=== PATIENT | female | born 1975 | race Caucasian/White ===

== ENCOUNTER 2019-05-21 00:13 | Emergency (ER) | payer MEDICAID, OTHER ==
[~2019-05-21] VITALS: Ht 162.6 cm; Wt 75.0 kg
[~2019-05-21 00:13] MED LIST: ALBU6.7H9 INH; ONDA8TAB9 PO
[2019-05-21 00:18] VITALS: BP 137/79
[2019-05-21] MEDS: ketorolac trometh inj. 60 MG/2 ML VIAL IM ONE (00:47)
== END 2019-05-21 00:58 | disposition home or self-care (01) ==
LOC: ER 00:14
DX: J01.00 Acute maxillary sinusitis, unspecified (principal); F17.200 Nicotine dependence, unspecified, uncomplicated; Z56.0 Unemployment, unspecified
CPT/HCPCS: 96372; 99284; J1885

== ENCOUNTER 2020-01-07 13:10 | Inpatient (IN) | payer OTHER ==
[~2020-01-07] VITALS: Ht 162.6 cm; Wt 75.0 kg
[2020-01-07] MEDS ORDERED: normal saline 1000ML IV soln IVB ONE (13:35)
[2020-01-07 13:54] LABS: BASOPHILS # (AUTO) 0.1 X10'3 (0-0.2); BASOPHILS % (AUTO) 0.6 % (0-1); EOSINOPHILS % (AUTO) 0.2 % (0-6); HEMATOCRIT 40.8 % (35.0-45.0); LYMPHOCYTES # (AUTO) 1.2 X10'3 (1.1-4.8); LYMPHOCYTES % (AUTO) 12.4 % (21-51); MEAN CORPUSCULAR HGB CONC 34.4 g/dL (33.0-36.5); MEAN CORPUSCULAR VOLUME 90.1 FL (78-98); MEAN PLATELET VOLUME 8.7 FL (7.4-10.4); MONOCYTES # (AUTO) 0.3 X10'3 (0-0.9); MONOCYTES % (AUTO) 3.6 % (2-12); NEUTROPHILS # (AUTO) 8.1 X10'3 (1.8-7.7); NEUTROPHILS % (AUTO) 83.2 % (42-75); PLATELET COUNT 283 X10'3 (140-440); RED BLOOD COUNT 4.54 X10'6 (4.20-5.60); RED CELL DISTRIBUTION WIDTH 13.5 % (11.5-14.5); WHITE BLOOD COUNT 9.7 X10'3 (4.5-11.0)
[2020-01-07 14:03] LABS: URINE AMPHETAMINE SCREEN NEGATIVE (Neg); URINE BARBITUATE SCREEN NEGATIVE (Neg); URINE BENZODIAZEPINES SCREEN NEGATIVE (Neg); URINE CANNABINOID SCREEN NEGATIVE (Neg); URINE COCAINE SCREEN NEGATIVE (Neg); URINE METHADONE SCREEN NEGATIVE (Neg); URINE OPIATE SCREEN NEGATIVE (Neg); URINE PHENCYCLIDINE SCREEN NEGATIVE (Neg)
[2020-01-07 14:06] LABS: CLARITY,URINE CLEAR (Clear); GLUCOSE, URINE NEGATIVE (Neg); KETONES,URINE NEGATIVE (Neg); LEUKOCYTE ESTERASE ,URINE NEGATIVE (Neg); NITRITES, URINE NEGATIVE (Neg); OCCULT BLOOD,URINE TRACE-INTACT (Neg); PH,URINE 6.5 (4.8-8.0); PROTEIN,URINE NEGATIVE (Neg); UROBILINOGEN,URINE 0.2 E.U/dL (0.2-1.0)
[2020-01-07 14:07] LABS: COLOR,URINE COLORLESS (Yellow); UA COLLECTION TYPE NON-SPECIFIED
[2020-01-07 14:14] LABS: ALANINE AMINOTRANSFERASE 18 U/L (12-78); ALBUMIN/GLOBULIN RATIO 1.2 (1.1-1.5); ALKALINE PHOSPHATASE 68 IU/L (46-116); ANION GAP 10 (8-16); ASPARTATE AMINO TRANSFERASE 17 U/L (10-37); BILIRUBIN,TOTAL 0.3 MG/DL (0.1-1.0); BLOOD UREA NITROGEN 11 MG/DL (7-18); BUN/CREATININE RATIO 12.5 (6.6-38.0); CALCIUM 8.7 MG/DL (8.5-10.1); CHLORIDE 106 MMOL/L (99-107); CREATININE 0.88 MG/DL (0.40-0.90); GLUCOSE 93 MG/DL (70-104); SODIUM 141 MMOL/L (135-145); TOTAL CARBON DIOXIDE 25.1 MMOL/L (24-32); TOTAL PROTEIN 7.4 G/DL (6.4-8.2); eGFR 70 ML/MIN
[2020-01-07 14:14] LABS: BACTERIA,URINE NONE SEEN /HPF (Neg); MUCUS STRANDS NONE SEEN /LPF (Neg); RBC,URINE 0-2 /HPF (0-2); SQUAMOUS EPITHELIAL CELL,UR FEW /LPF (FEW); WBC,URINE NONE SEEN /HPF (0-4)
[2020-01-07] MEDS ORDERED: aspirin 81mg tab.chew PO ONE (14:30)
[2020-01-07 15:06] LABS: URINE HCG NEGATIVE (NEG)
[2020-01-07] MEDS ORDERED: iohexol 350MG/ML 100ml bottle IV ONE (15:53)
[2020-01-07] MEDS ORDERED: NO HOME MEDS (16:46)
[2020-01-07] MEDS ORDERED: ondansetron/PF 4mg/2ml inj IV PRN (16:50)
[2020-01-07] MEDS ORDERED: acetaminophen 325mg tablet PO PRN (16:50)
[2020-01-07] MEDS ORDERED: mag hydrox/Alum hydrox/simeth 30ml oral suspension PO PRN (16:50)
[2020-01-07] MEDS ORDERED: magnesium hydroxide 30ml (MOM) UD suspension PO PRN (16:50)
[2020-01-07 17:26] LABS: CHOL/HDL RATIO 2.7 (0.00-4.99); CHOLESTEROL 189 MG/DL (0-200); HDL CHOLESTEROL 70 MG/DL (35-60); LDL CHOLESTEROL 109 MG/DL (50-100); TRIGLYCERIDES 42 MG/DL (20-135)
[2020-01-07] MEDS: normal saline 1000ml 1,000 ML IV SCH (18:50)
[2020-01-07 20:10] VITALS: BP 115/43
[2020-01-07] MEDS: heparin, porcine 5000 units/ml vial SQ SCH (20:37)
[2020-01-07 22:00] VITALS: BP 92/37
[2020-01-07 22:57] VITALS: BP 124/67
[2020-01-08 02:00] VITALS: BP 101/50
[2020-01-08] MEDS: normal saline 1000ml 1,000 ML IV SCH (04:58)
--- NOTE | 2020-01-08 06:39 | NUR ---
Problems reprioritized. Patient report given, questions answered & plan of care reviewed with LEE FERNANDES.
[2020-01-08 07:00] VITALS: BP 105/54
[2020-01-08] MEDS ORDERED: atorvastatin 20mg tablet PO SCH (08:00)
[2020-01-08] MEDS ORDERED: aspirin 81mg tablet.DR PO SCH (08:00)
[2020-01-08] MEDS: heparin, porcine 5000 units/ml vial SQ SCH (08:17)
--- NOTE | 2020-01-08 08:22 | NUR ---
PATIENT STATED SHE ISN'T GOING TO STAY, IF SHE GOING TO LAY IN BED, WHEN SHE CAN DO THAT AT HOME.
--- NOTE | 2020-01-08 09:00 | NUR ---
PAGER ID: [phone] MESSAGE: [phone] Zoraida Flores Patient is now more anxious to get her ECHO done and leave. I paged echo, but she states she has to go to take care of children. Sharon [id number]
[2020-01-08 10:00] VITALS: BP 119/62
--- NOTE | 2020-01-08 10:20 | NUR ---
Second page to ECHO to have bubble study done.
[2020-01-08] MEDS ORDERED: ASPI81TA30 PO (11:00)
[2020-01-08] MEDS ORDERED: ATOR20TA PO (11:00)
--- NOTE | 2020-01-08 11:53 | NUR ---
states she is "dizzy" but wants to go home, so her can work since she is the house . Addendum: 01/08/20 at 1157 by Sharon Barker RN Amended: Links added.
== END 2020-01-08 12:30 | disposition home or self-care (01) | DRG 69 ==
LOC: ER 13:10 → ED HOLD 16:57 → ORTHO 4S 19:50
PROVIDERS: ADMIT Family Medicine; ATTEND Family Medicine
PROC: B3251ZZ Computerized Tomography (CT Scan) of Bilateral Common Carotid Arteries using Low Osmolar Contrast (ICD-10-PCS; principal; 2020-01-07)
PROC: B32G1ZZ Computerized Tomography (CT Scan) of Bilateral Vertebral Arteries using Low Osmolar Contrast (ICD-10-PCS; 2020-01-07)
PROC: B3281ZZ Computerized Tomography (CT Scan) of Bilateral Internal Carotid Arteries using Low Osmolar Contrast (ICD-10-PCS; 2020-01-07)
DX: G45.9 Transient cerebral ischemic attack, unspecified (principal); F17.210 Nicotine dependence, cigarettes, uncomplicated; Z79.899 Other long term (current) drug therapy; Z71.6 Tobacco abuse counseling
CPT/HCPCS: 36415; 70450; 70496; 70498; 70544; 70551; 71045; 80053; 80061; 80305; 81001; 81025; 85025; 87081; 92508; 92616; 93005; 93306; 96360; 97161; 99285; G0378; J1644; J7030; Q9967

== ENCOUNTER 2020-01-23 18:24 | Emergency (ER) | payer OTHER ==
[~2020-01-23] VITALS: Ht 162.6 cm; Wt 77.0 kg
[~2020-01-23 18:24] MED LIST changes: -ALBU6.7H9 INH; +ASPI81TA30 PO; +ATOR20TA PO; -ONDA8TAB9 PO
[2020-01-23] MEDS ORDERED: MECL-159 PO (19:21)
[2020-01-23 19:24] VITALS: BP 105/64
== END 2020-01-23 19:30 | disposition home or self-care (01) ==
LOC: ER 18:24
DX: R42 Dizziness and giddiness (principal); H53.8 Other visual disturbances; Z72.89 Other problems related to lifestyle; Z56.0 Unemployment, unspecified; Z79.82 Long term (current) use of aspirin; Z79.899 Other long term (current) drug therapy
CPT/HCPCS: 93005; 99283

== ENCOUNTER 2020-02-27 11:20 | Emergency (ER) | payer OTHER ==
[~2020-02-27] VITALS: Ht 162.6 cm; Wt 71.6 kg
[~2020-02-27 11:20] MED LIST changes: -ASPI81TA30 PO; +MECL-159 PO
[2020-02-27 11:33] VITALS: BP 104/64
[2020-02-27] MEDS ORDERED: ketorolac trometh. 30mg/ml inj. IV ONE (13:25)
[2020-02-27] MEDS ORDERED: ringers solution, lacted 1,000 ML IV ONE (13:25)
[2020-02-27 13:51] LABS: BASOPHILS # (AUTO) 0.1 X10'3 (0-0.2); BASOPHILS % (AUTO) 0.5 % (0-1); EOSINOPHILS % (AUTO) 0.1 % (0-6); HEMATOCRIT 42.4 % (35.0-45.0); HEMOGLOBIN 14.2 g/dl (12.0-16.0); LYMPHOCYTES # (AUTO) 1.3 X10'3 (1.1-4.8); LYMPHOCYTES % (AUTO) 11.6 % (21-51); MEAN CORPUSCULAR HEMOGLOBIN 30.6 PG (27.0-31.0); MEAN CORPUSCULAR HGB CONC 33.6 g/dL (33.0-36.5); MONOCYTES # (AUTO) 0.3 X10'3 (0-0.9); MONOCYTES % (AUTO) 2.6 % (2-12); NEUTROPHILS # (AUTO) 9.8 X10'3 (1.8-7.7); NEUTROPHILS % (AUTO) 85.2 % (42-75); PLATELET COUNT 327 X10'3 (140-440); RED BLOOD COUNT 4.66 X10'6 (4.20-5.60); RED CELL DISTRIBUTION WIDTH 13.1 % (11.5-14.5); WHITE BLOOD COUNT 11.5 X10'3 (4.5-11.0)
[2020-02-27 14:03] LABS: ALANINE AMINOTRANSFERASE 19 U/L (12-78); ALBUMIN 4.3 G/DL (3.4-5.0); ALBUMIN/GLOBULIN RATIO 1.2 (1.1-1.5); ALKALINE PHOSPHATASE 80 IU/L (46-116); ANION GAP 6 (8-16); ASPARTATE AMINO TRANSFERASE 14 U/L (10-37); BILIRUBIN,TOTAL 0.4 MG/DL (0.1-1.0); BLOOD UREA NITROGEN 11 MG/DL (7-18); BUN/CREATININE RATIO 13.4 (6.6-38.0); CALCIUM 8.8 MG/DL (8.5-10.1); CHLORIDE 105 MMOL/L (99-107); CREATININE 0.82 MG/DL (0.40-0.90); GLUCOSE 100 MG/DL (70-104); POTASSIUM 3.9 MMOL/L (3.5-5.1); SODIUM 140 MMOL/L (135-145); TOTAL CARBON DIOXIDE 28.9 MMOL/L (24-32); TOTAL PROTEIN 7.9 G/DL (6.4-8.2); eGFR 75 ML/MIN
[2020-02-27 14:13] LABS: CREATINE KINASE 71 U/L (26-192)
--- NOTE | 2020-02-27 16:38 | NUR ---
I was going to bring patient back to bed 9, but patient stated that she did not want to go back to a room and just wanted to get the lab results. I asked patient to wait in bed 18 at which time I would have Dr. Hill come to speak with patient. Notified Dr. Hill regarding patient not wanting IV fluids and toradol and just wanting to go home stating that he was on his way. Dr. Hill went to speak with patient. Patient still wanted to leave per Dr. Hill.
[2020-02-28] MEDS ORDERED: DIPH25TA62 PO (02:48)
== END 2020-02-27 16:43 | disposition home or self-care (01) ==
LOC: ER 11:21
DX: S10.0XXA Contusion of throat, initial encounter (principal); E05.90 Thyrotoxicosis, unspecified without thyrotoxic crisis or storm; Z56.0 Unemployment, unspecified; Z72.89 Other problems related to lifestyle; Z79.899 Other long term (current) drug therapy; X58.XXXA Exposure to other specified factors, initial encounter; Y93.89 Activity, other specified; Y92.89 Other specified places as the place of occurrence of the external cause; Y99.8 Other external cause status
CPT/HCPCS: 36415; 80053; 82550; 84443; 85025; 93005; 99284

== ENCOUNTER 2020-02-28 02:22 | Emergency (ER) | payer OTHER ==
[~2020-02-28] VITALS: Ht 167.6 cm; Wt 75.0 kg
[2020-02-28] MEDS ORDERED: LIDOCAINE 5% OINTMENT 35GM TP ONE (02:45)
[2020-02-28] MEDS ORDERED: dexamethasone 4mg tablet PO ONE (02:45)
[2020-02-28] MEDS ORDERED: triamcinolone acetonide 40mg/ml inj IM ONE (02:45)
[2020-02-28] MEDS ORDERED: DIPH25TA62 PO (02:48)
[2020-02-28] MEDS ORDERED: triamcinolone acetonide 40mg/ml inj ONE ×2 (03:07→03:10)
[2020-02-28 03:21] VITALS: BP 127/76
== END 2020-02-28 03:22 | disposition home or self-care (01) ==
LOC: ER 02:23
DX: L25.9 Unspecified contact dermatitis, unspecified cause (principal); Z72.89 Other problems related to lifestyle; Z56.0 Unemployment, unspecified; Z79.899 Other long term (current) drug therapy
CPT/HCPCS: 96372; 99283; J3301

== ENCOUNTER 2020-03-05 13:25 | Inpatient (IN) | payer OTHER ==
[~2020-03-05] VITALS: Ht 162.6 cm; Wt 76.6 kg
[~2020-03-05 13:25] MED LIST changes: +DIPH25TA62 PO
--- NOTE | 2020-03-05 14:45 | NUR ---
LEE BUENO AT BEDSIDE TO INITIATE TELE NEURO CONSULTATION.
[2020-03-05 14:47] LABS: BASOPHILS # (AUTO) 0.1 X10'3 (0-0.2); EOSINOPHILS % (AUTO) 0.1 % (0-6); HEMOGLOBIN 14.4 g/dl (12.0-16.0); LYMPHOCYTES # (AUTO) 1.1 X10'3 (1.1-4.8); MEAN CORPUSCULAR HEMOGLOBIN 30.7 PG (27.0-31.0); MEAN CORPUSCULAR HGB CONC 34.1 g/dL (33.0-36.5); MEAN CORPUSCULAR VOLUME 89.8 FL (78-98); MEAN PLATELET VOLUME 8.8 FL (7.4-10.4); MONOCYTES # (AUTO) 0.3 X10'3 (0-0.9); MONOCYTES % (AUTO) 2.7 % (2-12); NEUTROPHILS # (AUTO) 10.3 X10'3 (1.8-7.7); NEUTROPHILS % (AUTO) 87.2 % (42-75); PLATELET COUNT 322 X10'3 (140-440); RED BLOOD COUNT 4.68 X10'6 (4.20-5.60); RED CELL DISTRIBUTION WIDTH 13.1 % (11.5-14.5); WHITE BLOOD COUNT 11.8 X10'3 (4.5-11.0)
[2020-03-05 15:12] LABS: ALANINE AMINOTRANSFERASE 24 U/L (12-78); ALBUMIN 4.2 G/DL (3.4-5.0); ALBUMIN/GLOBULIN RATIO 1.1 (1.1-1.5); ALKALINE PHOSPHATASE 73 IU/L (46-116); ANION GAP 5 (8-16); ASPARTATE AMINO TRANSFERASE 14 U/L (10-37); BILIRUBIN,TOTAL 0.4 MG/DL (0.1-1.0); BLOOD UREA NITROGEN 9 MG/DL (7-18); BUN/CREATININE RATIO 11.1 (6.6-38.0); CALCIUM 8.8 MG/DL (8.5-10.1); CHLORIDE 103 MMOL/L (99-107); CREATININE 0.81 MG/DL (0.40-0.90); GLUCOSE 97 MG/DL (70-104); POTASSIUM 3.6 MMOL/L (3.5-5.1); SODIUM 135 MMOL/L (135-145); TOTAL CARBON DIOXIDE 26.8 MMOL/L (24-32); TOTAL PROTEIN 7.9 G/DL (6.4-8.2); eGFR 76 ML/MIN
[2020-03-05 15:15] LABS: TROPONIN I < 0.04 NG/ML (0.0-0.05)
[2020-03-05] MEDS ORDERED: NO HOME MEDS (15:38)
[2020-03-05 15:40] LABS: PARTIAL THROMBOPLASTIN TIME 26 SECONDS (22-32)
[2020-03-05] MEDS ORDERED: magnesium hydroxide 30ml (MOM) UD suspension PO PRN (16:20)
[2020-03-05] MEDS ORDERED: acetaminophen 325mg tablet PO PRN ×2 (16:20)
[2020-03-05] MEDS ORDERED: morphine 2 MG/ML inj. syringe IV PRN ×2 (16:20)
[2020-03-05] MEDS ORDERED: mag hydrox/Alum hydrox/simeth 30ml oral suspension PO PRN (16:20)
[2020-03-05] MEDS ORDERED: ondansetron/PF 4mg/2ml inj IV PRN (16:20)
[2020-03-05] MEDS ORDERED: HYDROcodone/acetaminophen 5mg/325mg tablet PO PRN (16:20)
[2020-03-05] MEDS: dextrose 5%-1/2 normal saline 1,000 ML IV SCH (16:46)
[2020-03-05 17:10] LABS: CREATINE KINASE 47 U/L (26-192)
--- NOTE | 2020-03-05 17:43 | NUR ---
PATIENT REFUSING TO WEAR HOSPITAL GOWN AT THIS TIME, PRIMARY RN AWARE.
[2020-03-05 20:54] LABS: CLARITY,URINE CLEAR (Clear); COLOR,URINE YELLOW (Yellow); GLUCOSE, URINE NEGATIVE (Neg); KETONES,URINE 40 mg/dl (Neg); LEUKOCYTE ESTERASE ,URINE NEGATIVE (Neg); NITRITES, URINE NEGATIVE (Neg); OCCULT BLOOD,URINE MODERATE (Neg); PROTEIN,URINE NEGATIVE (Neg); UROBILINOGEN,URINE 0.2 E.U/dL (0.2-1.0)
[2020-03-05 20:58] LABS: UA COLLECTION TYPE CLN CATCH MIDSTREAM
[2020-03-05 21:04] LABS: BACTERIA,URINE FEW /HPF (Neg); MUCUS STRANDS MODERATE /LPF (Neg); RBC,URINE 0-2 /HPF (0-2); SQUAMOUS EPITHELIAL CELL,UR MODERATE /LPF (FEW); WBC,URINE 0-4 /HPF (0-4)
[2020-03-05 21:05] LABS: URINE AMPHETAMINE SCREEN NEGATIVE (Neg); URINE BARBITUATE SCREEN NEGATIVE (Neg); URINE BENZODIAZEPINES SCREEN NEGATIVE (Neg); URINE CANNABINOID SCREEN NEGATIVE (Neg); URINE COCAINE SCREEN NEGATIVE (Neg); URINE METHADONE SCREEN NEGATIVE (Neg); URINE OPIATE SCREEN NEGATIVE (Neg); URINE PHENCYCLIDINE SCREEN NEGATIVE (Neg)
[2020-03-06] MEDS: dextrose 5%-1/2 normal saline 1,000 ML IV SCH (02:22)
[2020-03-06 06:06] LABS: BASOPHILS # (AUTO) 0.1 X10'3 (0-0.2); BASOPHILS % (AUTO) 0.8 % (0-1); EOSINOPHILS % (AUTO) 0.3 % (0-6); HEMATOCRIT 39.5 % (35.0-45.0); HEMOGLOBIN 13.9 g/dl (12.0-16.0); LYMPHOCYTES # (AUTO) 2.3 X10'3 (1.1-4.8); LYMPHOCYTES % (AUTO) 23.1 % (21-51); MEAN CORPUSCULAR HEMOGLOBIN 31.6 PG (27.0-31.0); MEAN CORPUSCULAR HGB CONC 35.1 g/dL (33.0-36.5); MONOCYTES # (AUTO) 0.6 X10'3 (0-0.9); MONOCYTES % (AUTO) 5.6 % (2-12); NEUTROPHILS # (AUTO) 7.1 X10'3 (1.8-7.7); NEUTROPHILS % (AUTO) 70.2 % (42-75); PLATELET COUNT 279 X10'3 (140-440); RED BLOOD COUNT 4.38 X10'6 (4.20-5.60); RED CELL DISTRIBUTION WIDTH 13.3 % (11.5-14.5); WHITE BLOOD COUNT 10.1 X10'3 (4.5-11.0)
[2020-03-06 06:40] LABS: ALANINE AMINOTRANSFERASE 22 U/L (12-78); ALBUMIN 3.5 G/DL (3.4-5.0); ALBUMIN/GLOBULIN RATIO 1.1 (1.1-1.5); ALKALINE PHOSPHATASE 66 IU/L (46-116); ANION GAP 11 (8-16); ASPARTATE AMINO TRANSFERASE 11 U/L (10-37); BILIRUBIN,TOTAL 0.4 MG/DL (0.1-1.0); BLOOD UREA NITROGEN 10 MG/DL (7-18); BUN/CREATININE RATIO 14.7 (6.6-38.0); CALCIUM 8.5 MG/DL (8.5-10.1); CHLORIDE 104 MMOL/L (99-107); CREATININE 0.68 MG/DL (0.40-0.90); GLUCOSE 107 MG/DL (70-104); POTASSIUM 3.7 MMOL/L (3.5-5.1); SODIUM 141 MMOL/L (135-145); TOTAL CARBON DIOXIDE 26.5 MMOL/L (24-32); TOTAL PROTEIN 6.8 G/DL (6.4-8.2); eGFR > 90 ML/MIN
--- NOTE | 2020-03-06 07:16 | NUR ---
RECEIVED PATIENT FROM ER, STILL REFUSING GOWN AFTER EXPLAINING WE NEED TO IDENTIFY HER A PATIENT.
[2020-03-06 10:00] VITALS: BP 114/60
--- NOTE | 2020-03-06 11:05 | NUR ---
patient back from MRI, EEG in room
--- NOTE | 2020-03-06 13:39 | NUR ---
Doctor to see patient educated, gave test results. Patient came out and started walking out of the hospital, doctor aware patient is leaving AMA and patient refused to sign form.
== END 2020-03-06 13:39 | disposition home or self-care (01) | DRG 312 ==
LOC: ER 13:25 → ED HOLD 16:18 → ORTHO 4S 03-06 07:10
PROVIDERS: ADMIT Internal Medicine; ATTEND Internal Medicine
PROC: 4A10X4Z Monitoring of Central Nervous Electrical Activity, External Approach (ICD-10-PCS; principal; 2020-03-06)
DX: R55 Syncope and collapse (principal); F45.20 Hypochondriacal disorder, unspecified; F17.210 Nicotine dependence, cigarettes, uncomplicated; E07.9 Disorder of thyroid, unspecified; R00.2 Palpitations; Z79.899 Other long term (current) drug therapy
CPT/HCPCS: 36415; 70450; 70551; 71045; 80053; 80305; 81001; 82550; 82948; 84443; 84484; 85025; 85610; 85651; 85730; 87081; 93005; 95816; 99285; G0378

== ENCOUNTER 2020-04-24 02:40 | Emergency (ER) | payer OTHER ==
[~2020-04-24] VITALS: Ht 162.6 cm; Wt 77.3 kg
[~2020-04-24 02:40] MED LIST changes: -ATOR20TA PO; -DIPH25TA62 PO; -MECL-159 PO; +NO HOME MEDS
[2020-04-24] MEDS ORDERED: ketorolac trometh inj. 60 MG/2 ML VIAL IM ONE (04:10)
--- NOTE | 2020-04-24 04:30 | NUR ---
PT UP IN CHAIR, IN NO APPARENT DISTRESS ON PHONE
[2020-04-24 04:39] VITALS: BP 117/63
== END 2020-04-24 04:42 | disposition left against medical advice (07) ==
LOC: ER 02:40
DX: M25.511 Pain in right shoulder (principal); F17.200 Nicotine dependence, unspecified, uncomplicated; Z56.0 Unemployment, unspecified; Z79.899 Other long term (current) drug therapy
CPT/HCPCS: 73030; 96372; 99283; J1885

== ENCOUNTER 2020-04-24 04:59 | Emergency (ER) | payer OTHER ==
[~2020-04-24] VITALS: Ht 165.1 cm; Wt 77.3 kg
[2020-04-24 05:05] VITALS: BP 144/78
--- NOTE | 2020-04-24 05:07 | NUR ---
PT STATES SHE WANTS TO WAIT IN THE WAITING ROOM UNTIL ULTRASOUND IS HERE FOR HER
== END 2020-04-24 08:52 | disposition home or self-care (01) ==
LOC: ER 05:00
DX: M25.511 Pain in right shoulder (principal); M54.2 Cervicalgia; I63.9 Cerebral infarction, unspecified; Z79.899 Other long term (current) drug therapy
CPT/HCPCS: 93971; 99284

== ENCOUNTER 2020-08-02 04:09 | Emergency (ER) | payer OTHER ==
[~2020-08-02] VITALS: Ht 162.6 cm; Wt 80.0 kg
[2020-08-02 04:17] VITALS: BP 114/76
== END 2020-08-02 05:23 | disposition home or self-care (01) ==
LOC: ER 04:09
DX: M79.674 Pain in right toe(s) (principal); Z86.73 Personal history of transient ischemic attack (TIA), and cerebral infarction without residual deficits; Z72.89 Other problems related to lifestyle; Z56.0 Unemployment, unspecified
CPT/HCPCS: 73630; 99284

== ENCOUNTER 2020-12-30 08:45 | Emergency (ER) | payer BC, OTHER ==
[~2020-12-30] VITALS: Ht 162.6 cm; Wt 85.2 kg
[2020-12-30] MEDS ORDERED: normal saline 1000ml 1,000 ML IV ONE (09:05)
[2020-12-30] MEDS ORDERED: aspirin 81mg tab.chew PO ONE (09:05)
[2020-12-30] MEDS ORDERED: ketorolac trometh. 30mg/ml inj. IV ONE (09:05)
[2020-12-30 09:17] LABS: BASOPHILS # (AUTO) 0.1 X10'3 (0-0.2); BASOPHILS % (AUTO) 1.3 % (0-1); EOSINOPHILS % (AUTO) 0.6 % (0-6); HEMATOCRIT 42.7 % (35.0-45.0); HEMOGLOBIN 14.7 g/dl (12.0-16.0); LYMPHOCYTES # (AUTO) 1.6 X10'3 (1.1-4.8); LYMPHOCYTES % (AUTO) 18.3 % (21-51); MEAN CORPUSCULAR HEMOGLOBIN 30.8 PG (27.0-31.0); MEAN CORPUSCULAR HGB CONC 34.3 g/dL (33.0-36.5); MEAN CORPUSCULAR VOLUME 89.7 FL (78-98); MONOCYTES # (AUTO) 0.5 X10'3 (0-0.9); MONOCYTES % (AUTO) 5.5 % (2-12); NEUTROPHILS # (AUTO) 6.6 X10'3 (1.8-7.7); NEUTROPHILS % (AUTO) 74.3 % (42-75); PLATELET COUNT 287 X10'3 (140-440); RED BLOOD COUNT 4.77 X10'6 (4.20-5.60); RED CELL DISTRIBUTION WIDTH 13.3 % (11.5-14.5); WHITE BLOOD COUNT 8.9 X10'3 (4.5-11.0)
[2020-12-30 09:34] LABS: ALANINE AMINOTRANSFERASE 18 U/L (12-78); ALBUMIN/GLOBULIN RATIO 1.1 (1.1-1.5); ALKALINE PHOSPHATASE 86 IU/L (46-116); ANION GAP 10 (8-16); ASPARTATE AMINO TRANSFERASE 14 U/L (10-37); BILIRUBIN,TOTAL 0.3 MG/DL (0.1-1.0); BLOOD UREA NITROGEN 15 MG/DL (7-18); BUN/CREATININE RATIO 17.4 (6.6-38.0); CALCIUM 8.3 MG/DL (8.5-10.1); CHLORIDE 106 MMOL/L (99-107); CREATININE 0.86 MG/DL (0.40-0.90); GLUCOSE 90 MG/DL (70-104); POTASSIUM 3.4 MMOL/L (3.5-5.1); SODIUM 141 MMOL/L (135-145); TOTAL CARBON DIOXIDE 24.9 MMOL/L (24-32); TOTAL PROTEIN 7.7 G/DL (6.4-8.2); eGFR 71 ML/MIN
[2020-12-30 09:38] LABS: URINE HCG NEGATIVE (NEG)
[2020-12-30 09:45] LABS: CLARITY,URINE CLOUDY (Clear); COLOR,URINE YELLOW (Yellow); GLUCOSE, URINE NEGATIVE (Neg); KETONES,URINE NEGATIVE (Neg); LEUKOCYTE ESTERASE ,URINE TRACE (Neg); NITRITES, URINE NEGATIVE (Neg); OCCULT BLOOD,URINE SMALL (Neg); PROTEIN,URINE NEGATIVE (Neg); UROBILINOGEN,URINE 0.2 E.U/dL (0.2-1.0)
[2020-12-30 09:58] LABS: BACTERIA,URINE 3+ /HPF (Neg); RBC,URINE 0-2 /HPF (0-2); SQUAMOUS EPITHELIAL CELL,UR MANY /LPF (FEW); UA COLLECTION TYPE CLN CATCH MIDSTREAM; WBC,URINE 0-4 /HPF (0-4)
[2020-12-30 10:38] VITALS: BP 131/76
[2020-12-30] MEDS ORDERED: acetaminophen 325mg tablet PO ONE (10:45)
--- NOTE | 2020-12-30 11:32 | NUR ---
RN INTERVINES PT WAS PULLING OUT IV. PT ADAMENT ABOUT LEAVING FACILITY. PT STATES THAT THE HOSPITAL HAS ALL THINFORMATIN IT NEEDS AND THAT SHE CANT WAIT AROUND ANYMORE BECAUSE SHE IS EXPERIENCING MORE PAIN JUST BEING HERE AT THE FACILITY. RN NOTIFIES MD THAT PT IS LEAVING. RN DISCONTINUES IV LINE AND PT GETS DRESSED.
== END 2020-12-30 11:43 | disposition left against medical advice (07) ==
LOC: ER 08:47
DX: M79.601 Pain in right arm (principal); R11.0 Nausea; Z86.69 Personal history of other diseases of the nervous system and sense organs; Z72.89 Other problems related to lifestyle; Z56.0 Unemployment, unspecified
CPT/HCPCS: 36415; 71045; 80053; 81001; 81025; 84484; 85025; 93005; 93971; 96361; 96374; 99285; J1885; J7030

== ENCOUNTER 2021-01-01 10:43 | Emergency (ER) | payer BC ==
[~2021-01-01] VITALS: Ht 162.6 cm; Wt 81.8 kg
[2021-01-01 10:47] VITALS: BP 116/71
[2021-01-01] MEDS ORDERED: CLIN150C2 PO (12:54)
== END 2021-01-01 13:11 | disposition home or self-care (01) ==
LOC: ER 10:44
DX: K04.7 Periapical abscess without sinus (principal); Z86.73 Personal history of transient ischemic attack (TIA), and cerebral infarction without residual deficits; Z72.89 Other problems related to lifestyle; Z56.0 Unemployment, unspecified
CPT/HCPCS: 99283

== ENCOUNTER 2021-02-25 12:07 | Emergency (ER) | payer BC ==
[~2021-02-25] VITALS: Ht 165.1 cm; Wt 81.2 kg
[2021-02-25 12:27] VITALS: BP 126/72
[2021-02-25 13:05] LABS: BASOPHILS # (AUTO) 0.1 X10'3 (0-0.2); BASOPHILS % (AUTO) 0.7 % (0-1); EOSINOPHILS % (AUTO) 0.2 % (0-6); HEMOGLOBIN 14.8 g/dl (12.0-16.0); LYMPHOCYTES # (AUTO) 1.5 X10'3 (1.1-4.8); LYMPHOCYTES % (AUTO) 13.4 % (21-51); MEAN CORPUSCULAR HEMOGLOBIN 30.1 PG (27.0-31.0); MEAN CORPUSCULAR HGB CONC 33.5 g/dL (33.0-36.5); MEAN CORPUSCULAR VOLUME 89.9 FL (78-98); MEAN PLATELET VOLUME 8.6 FL (7.4-10.4); MONOCYTES # (AUTO) 0.4 X10'3 (0-0.9); MONOCYTES % (AUTO) 3.2 % (2-12); NEUTROPHILS # (AUTO) 9.2 X10'3 (1.8-7.7); NEUTROPHILS % (AUTO) 82.5 % (42-75); PLATELET COUNT 351 X10'3 (140-440); RED CELL DISTRIBUTION WIDTH 13.5 % (11.5-14.5); WHITE BLOOD COUNT 11.2 X10'3 (4.5-11.0)
[2021-02-25 13:13] LABS: ALANINE AMINOTRANSFERASE 22 U/L (12-78); ALBUMIN 4.2 G/DL (3.4-5.0); ALKALINE PHOSPHATASE 89 IU/L (46-116); ANION GAP 11 (8-16); ASPARTATE AMINO TRANSFERASE 26 U/L (10-37); BILIRUBIN,TOTAL 0.3 MG/DL (0.1-1.0); BLOOD UREA NITROGEN 8 MG/DL (7-18); CALCIUM 9.6 MG/DL (8.5-10.1); CHLORIDE 105 MMOL/L (99-107); CREATININE 0.89 MG/DL (0.40-0.90); ETHANOL < 0.010 GM/DL (0.0-0.010); GLUCOSE 109 MG/DL (70-104); LIPASE 53 U/L (73-393); POTASSIUM 3.8 MMOL/L (3.5-5.1); SODIUM 144 MMOL/L (135-145); TOTAL CARBON DIOXIDE 28.4 MMOL/L (24-32); TOTAL PROTEIN 8.3 G/DL (6.4-8.2); eGFR 68 ML/MIN
[2021-02-25] MEDS ORDERED: HYDR-3686 PO (14:41)
== END 2021-02-25 15:32 | disposition home or self-care (01) ==
LOC: ER 12:07
DX: T78.1XXA Other adverse food reactions, not elsewhere classified, initial encounter (principal); F41.9 Anxiety disorder, unspecified; E16.2 Hypoglycemia, unspecified; R11.0 Nausea; R19.7 Diarrhea, unspecified; Z86.73 Personal history of transient ischemic attack (TIA), and cerebral infarction without residual deficits; Z72.89 Other problems related to lifestyle; Z56.0 Unemployment, unspecified; Z79.899 Other long term (current) drug therapy; X58.XXXA Exposure to other specified factors, initial encounter
CPT/HCPCS: 36415; 80053; 80320; 82948; 83690; 85025; 99283

== ENCOUNTER 2021-09-02 16:20 | Emergency (ER) | payer BC ==
[~2021-09-02] VITALS: Ht 160 cm; Wt 84.0 kg
[2021-09-02 17:08] VITALS: BP 143/86
[2021-09-02] MEDS ORDERED: CEPH-585 PO (20:56)
[2021-09-02] MEDS ORDERED: cephalexin 500mg capsule PO ONE (21:00)
== END 2021-09-02 21:14 | disposition home or self-care (01) ==
LOC: ER 16:21
DX: H60.12 Cellulitis of left external ear (principal); Z86.73 Personal history of transient ischemic attack (TIA), and cerebral infarction without residual deficits; Z72.89 Other problems related to lifestyle; Z56.0 Unemployment, unspecified; Z79.2 Long term (current) use of antibiotics
CPT/HCPCS: 99283

== ENCOUNTER 2021-10-30 22:16 | Emergency (ER) | payer BC ==
[~2021-10-30] VITALS: Ht 167.6 cm; Wt 80.0 kg
[~2021-10-30 22:16] MED LIST changes: +CEPH-585 PO
== END 2021-10-30 22:31 | disposition left against medical advice (07) ==
LOC: ER 22:16
DX: Z00.8 Encounter for other general examination (principal); Z53.21 Procedure and treatment not carried out due to patient leaving prior to being seen by health care provider

== ENCOUNTER 2022-09-02 08:12 | Emergency (ER) | payer BC ==
[~2022-09-02] VITALS: Ht 162.6 cm; Wt 72.7 kg
[2022-09-02 08:21] VITALS: BP 134/90
[2022-09-02] MEDS ORDERED: ketorolac trometh. 30mg/ml inj. IM ONE (09:00)
== END 2022-09-02 10:09 | disposition left against medical advice (07) ==
LOC: ER 08:13
DX: M54.10 Radiculopathy, site unspecified (principal); M79.602 Pain in left arm; Z91.09 Other allergy status, other than to drugs and biological substances; Z56.0 Unemployment, unspecified
CPT/HCPCS: 71045; 93005; 96372; 99283; J1885

== ENCOUNTER 2023-06-15 08:35 | Emergency (ER) | payer BC ==
[~2023-06-15] VITALS: Ht 162.6 cm; Wt 80.9 kg
[~2023-06-15 08:35] MED LIST changes: -CEPH-585 PO
[2023-06-15 08:53] VITALS: BP 122/50; PULSE 89; RESP 16; TEMP 98.6; O2SAT 100
[2023-06-15 09:09] LABS: BASOPHILS # (AUTO) 0.1 X10'3 (0-0.2); EOSINOPHILS % (AUTO) 0.6 % (0-6); HEMATOCRIT 42.3 % (35.0-45.0); HEMOGLOBIN 14.3 g/dl (12.0-16.0); LYMPHOCYTES # (AUTO) 1.8 X10'3 (1.1-4.8); LYMPHOCYTES % (AUTO) 27.4 % (21-51); MEAN CORPUSCULAR HEMOGLOBIN 30.5 PG (27.0-31.0); MEAN CORPUSCULAR HGB CONC 33.8 g/dL (33.0-36.5); MEAN CORPUSCULAR VOLUME 90.2 FL (78-98); MEAN PLATELET VOLUME 8.2 FL (7.4-10.4); MONOCYTES # (AUTO) 0.3 X10'3 (0-0.9); MONOCYTES % (AUTO) 4.6 % (2-12); NEUTROPHILS # (AUTO) 4.4 X10'3 (1.8-7.7); NEUTROPHILS % (AUTO) 66.4 % (42-75); PLATELET COUNT 304 X10'3 (140-440); RED BLOOD COUNT 4.69 X10'6 (4.20-5.60); RED CELL DISTRIBUTION WIDTH 13.2 % (11.5-14.5); WHITE BLOOD COUNT 6.6 X10'3 (4.5-11.0)
[2023-06-15 09:20] LABS: URINE HCG NEGATIVE (NEG)
[2023-06-15 09:32] LABS: ALANINE AMINOTRANSFERASE 18 U/L (12-78); ALBUMIN 3.9 G/DL (3.4-5.0); ALKALINE PHOSPHATASE 78 IU/L (46-116); ANION GAP 12 (8-16); ASPARTATE AMINO TRANSFERASE 11 U/L (10-37); BILIRUBIN,TOTAL 0.3 MG/DL (0.1-1.0); BLOOD UREA NITROGEN 13 MG/DL (7-18); BUN/CREATININE RATIO 17.1 (10.0-20.0); CALCIUM 8.9 MG/DL (8.5-10.1); CHLORIDE 106 MMOL/L (99-107); CREATININE 0.76 MG/DL (0.40-0.90); GLUCOSE 96 MG/DL (70-104); POTASSIUM 3.3 MMOL/L (3.5-5.1); SODIUM 144 MMOL/L (135-145); TOTAL CARBON DIOXIDE 26.2 MMOL/L (24-32); TOTAL PROTEIN 7.7 G/DL (6.4-8.2); eCRCL 78 ML/MIN; eGFR 81 ML/MIN
[2023-06-15 09:34] LABS: PRO BRAIN NATRIURETIC PEPTIDE 58 PG/ML (0-125)
[2023-06-15 09:37] LABS: BILIRUBIN,URINE NEGATIVE (Neg); CLARITY,URINE SLIGHTLY CLOUDY (Clear); COLOR,URINE STRAW (Yellow); GLUCOSE, URINE NEGATIVE (Neg); KETONES,URINE NEGATIVE (Neg); LEUKOCYTE ESTERASE ,URINE MODERATE (Neg); NITRITES, URINE NEGATIVE (Neg); OCCULT BLOOD,URINE SMALL (Neg); PH,URINE 6.5 (4.8-8.0); PROTEIN,URINE NEGATIVE (Neg); UROBILINOGEN,URINE 0.2 E.U/dL (0.2-1.0)
[2023-06-15 09:50] LABS: UA COLLECTION TYPE CLN CATCH MIDSTREAM
[2023-06-15 09:52] LABS: SQUAMOUS EPITHELIAL CELL,UR MANY /LPF (FEW)
[2023-06-15 09:54] LABS: AMORPHOUS URATES 1+; BACTERIA,URINE FEW /HPF (Neg)
[2023-06-15] MEDS ORDERED: CEFD300C3 PO (10:42)
== END 2023-06-15 10:47 | disposition home or self-care (01) ==
LOC: ER 08:35
DX: N39.0 Urinary tract infection, site not specified (principal); R61 Generalized hyperhidrosis; Z86.73 Personal history of transient ischemic attack (TIA), and cerebral infarction without residual deficits; Z72.89 Other problems related to lifestyle; Z56.0 Unemployment, unspecified; Z88.8 Allergy status to other drugs, medicaments and biological substances; Z79.899 Other long term (current) drug therapy
CPT/HCPCS: 36415; 71045; 80053; 81001; 81025; 82948; 83880; 84484; 85025; 93005; 99285

== ENCOUNTER 2023-06-17 10:05 | Emergency (ER) | payer BC ==
[~2023-06-17] VITALS: Ht 162.6 cm; Wt 73.5 kg
[~2023-06-17 10:05] MED LIST changes: +CEFD300C3 PO
[2023-06-17 10:41] VITALS: BP 136/77; PULSE 90; TEMP 98.2; O2SAT 100
[2023-06-17 11:32] LABS: BILIRUBIN,URINE NEGATIVE (Neg); CLARITY,URINE CLEAR (Clear); COLOR,URINE STRAW (Yellow); GLUCOSE, URINE NEGATIVE (Neg); KETONES,URINE NEGATIVE (Neg); LEUKOCYTE ESTERASE ,URINE NEGATIVE (Neg); NITRITES, URINE NEGATIVE (Neg); OCCULT BLOOD,URINE TRACE-INTACT (Neg); PROTEIN,URINE NEGATIVE (Neg); UROBILINOGEN,URINE 0.2 E.U/dL (0.2-1.0)
[2023-06-17 11:52] LABS: UA COLLECTION TYPE CLN CATCH MIDSTREAM
[2023-06-17 11:59] LABS: BACTERIA,URINE NONE SEEN /HPF (Neg); RBC,URINE 0-2 /HPF (0-2); SQUAMOUS EPITHELIAL CELL,UR FEW /LPF (FEW); WBC,URINE NONE SEEN /HPF (0-4)
[2023-06-17 13:51] VITALS: RESP 16
[2023-06-17 13:57] LABS: ALANINE AMINOTRANSFERASE 26 U/L (12-78); ALBUMIN 4.4 G/DL (3.4-5.0); ALBUMIN/GLOBULIN RATIO 1.1 (1.1-1.5); ALKALINE PHOSPHATASE 90 IU/L (46-116); ANION GAP 9 (8-16); ASPARTATE AMINO TRANSFERASE 16 U/L (10-37); BILIRUBIN,TOTAL 0.4 MG/DL (0.1-1.0); BLOOD UREA NITROGEN 9 MG/DL (7-18); BUN/CREATININE RATIO 10.6 (10.0-20.0); CALCIUM 9.1 MG/DL (8.5-10.1); CHLORIDE 104 MMOL/L (99-107); CREATININE 0.85 MG/DL (0.40-0.90); GLUCOSE 115 MG/DL (70-104); POTASSIUM 3.8 MMOL/L (3.5-5.1); SODIUM 144 MMOL/L (135-145); TOTAL CARBON DIOXIDE 31.3 MMOL/L (24-32); TOTAL PROTEIN 8.5 G/DL (6.4-8.2); eCRCL 70 ML/MIN; eGFR 71 ML/MIN
[2023-06-17 13:59] LABS: BASOPHILS # (AUTO) 0.1 X10'3 (0-0.2); BASOPHILS % (AUTO) 0.7 % (0-1); EOSINOPHILS % (AUTO) 0.2 % (0-6); HEMATOCRIT 43.3 % (35.0-45.0); HEMOGLOBIN 14.8 g/dl (12.0-16.0); LYMPHOCYTES # (AUTO) 1.9 X10'3 (1.1-4.8); LYMPHOCYTES % (AUTO) 22.1 % (21-51); MEAN CORPUSCULAR HEMOGLOBIN 30.8 PG (27.0-31.0); MEAN CORPUSCULAR HGB CONC 34.1 g/dL (33.0-36.5); MEAN CORPUSCULAR VOLUME 90.3 FL (78-98); MEAN PLATELET VOLUME 8.8 FL (7.4-10.4); MONOCYTES # (AUTO) 0.3 X10'3 (0-0.9); MONOCYTES % (AUTO) 3.5 % (2-12); NEUTROPHILS # (AUTO) 6.2 X10'3 (1.8-7.7); NEUTROPHILS % (AUTO) 73.5 % (42-75); PLATELET COUNT 317 X10'3 (140-440); RED BLOOD COUNT 4.79 X10'6 (4.20-5.60); RED CELL DISTRIBUTION WIDTH 13.2 % (11.5-14.5); WHITE BLOOD COUNT 8.4 X10'3 (4.5-11.0)
[2023-06-17 14:13] LABS: BETA HCG,QUANTITATIVE 3 mIU/ml
== END 2023-06-17 15:07 | disposition home or self-care (01) ==
LOC: ER 10:06
DX: R42 Dizziness and giddiness (principal); R06.02 Shortness of breath; R53.1 Weakness; R68.83 Chills (without fever); R61 Generalized hyperhidrosis; Z56.0 Unemployment, unspecified; Z72.89 Other problems related to lifestyle; Z86.73 Personal history of transient ischemic attack (TIA), and cerebral infarction without residual deficits; Z79.899 Other long term (current) drug therapy
CPT/HCPCS: 36415; 71045; 80053; 81001; 84702; 85025; 99284

== ENCOUNTER 2023-10-27 05:07 | Emergency (ER) | payer BC ==
[~2023-10-27] VITALS: Ht 162.6 cm; Wt 76.4 kg
[~2023-10-27 05:07] MED LIST changes: -CEFD300C3 PO
[2023-10-27 05:26] VITALS: BP 145/78; PULSE 88; TEMP 98.3; O2SAT 98
[2023-10-27 06:03] VITALS: RESP 17
[2023-10-27] MEDS: ketorolac tromethamine 15mg/ml inj. IM ONE (06:03)
== END 2023-10-27 06:14 | disposition home or self-care (01) ==
LOC: ER 05:08
DX: M25.511 Pain in right shoulder (principal); Z72.89 Other problems related to lifestyle; Z56.0 Unemployment, unspecified; Z86.73 Personal history of transient ischemic attack (TIA), and cerebral infarction without residual deficits; Z91.048 Other nonmedicinal substance allergy status
CPT/HCPCS: 96372; 99283; J1885

== ENCOUNTER 2024-02-05 15:47 | Emergency (ER) | payer BC ==
[~2024-02-05] VITALS: Ht 165.1 cm; Wt 79.5 kg
[2024-02-05 15:50] VITALS: BP 147/87; PULSE 89; RESP 16; TEMP 98.6; O2SAT 99
[2024-02-05 16:34] LABS: BASOPHILS # (AUTO) 0.1 X10'3 (0-0.2); BASOPHILS % (AUTO) 1.3 % (0-1); EOSINOPHILS # (AUTO) 0.1 X10'3 (0-0.9); EOSINOPHILS % (AUTO) 1.2 % (0-6); HEMATOCRIT 42.1 % (35.0-45.0); HEMOGLOBIN 14.2 g/dl (12.0-16.0); LYMPHOCYTES # (AUTO) 1.9 X10'3 (1.1-4.8); LYMPHOCYTES % (AUTO) 25.6 % (21-51); MEAN CORPUSCULAR HEMOGLOBIN 30.5 PG (27.0-31.0); MEAN CORPUSCULAR HGB CONC 33.6 g/dL (33.0-36.5); MEAN CORPUSCULAR VOLUME 90.6 FL (78-98); MONOCYTES # (AUTO) 0.5 X10'3 (0-0.9); MONOCYTES % (AUTO) 6.2 % (2-12); NEUTROPHILS # (AUTO) 4.8 X10'3 (1.8-7.7); NEUTROPHILS % (AUTO) 65.7 % (42-75); PLATELET COUNT 273 X10'3 (140-440); RED BLOOD COUNT 4.65 X10'6 (4.20-5.60); RED CELL DISTRIBUTION WIDTH 13.2 % (11.5-14.5); WHITE BLOOD COUNT 7.4 X10'3 (4.5-11.0)
[2024-02-05 16:44] LABS: ALANINE AMINOTRANSFERASE 10 U/L (12-78); ALBUMIN 3.9 G/DL (3.4-5.0); ALBUMIN/GLOBULIN RATIO 1.1 (1.1-1.5); ALKALINE PHOSPHATASE 80 IU/L (46-116); ANION GAP 6 (8-16); ASPARTATE AMINO TRANSFERASE 18 U/L (10-37); BILIRUBIN,TOTAL 0.3 MG/DL (0.1-1.0); BLOOD UREA NITROGEN 14 MG/DL (7-18); BUN/CREATININE RATIO 16.5 (10.0-20.0); CALCIUM 8.4 MG/DL (8.5-10.1); CHLORIDE 107 MMOL/L (99-107); CREATININE 0.85 MG/DL (0.40-0.90); GLUCOSE 94 MG/DL (70-104); POTASSIUM 3.8 MMOL/L (3.5-5.1); SODIUM 142 MMOL/L (135-145); TOTAL CARBON DIOXIDE 28.7 MMOL/L (24-32); TOTAL PROTEIN 7.3 G/DL (6.4-8.2); eCRCL 73 ML/MIN; eGFR 71 ML/MIN
[2024-02-05 16:52] LABS: PRO BRAIN NATRIURETIC PEPTIDE 124 PG/ML (0-125)
== END 2024-02-05 17:42 | disposition home or self-care (01) ==
LOC: ER 15:48
DX: R00.2 Palpitations (principal); F17.210 Nicotine dependence, cigarettes, uncomplicated; E11.9 Type 2 diabetes mellitus without complications; Z86.73 Personal history of transient ischemic attack (TIA), and cerebral infarction without residual deficits; Z56.0 Unemployment, unspecified; Z72.89 Other problems related to lifestyle
CPT/HCPCS: 36415; 71045; 80053; 83880; 84484; 85025; 93005; 99285

== ENCOUNTER 2024-09-17 15:36 | Emergency (ER) | payer BC ==
[~2024-09-17] VITALS: Ht 170.2 cm; Wt 79.2 kg
[2024-09-17 15:53] VITALS: BP 130/68; PULSE 78; RESP 16; TEMP 97.8; O2SAT 100
== END 2024-09-17 17:32 | disposition left against medical advice (07) ==
LOC: ER 15:37
DX: E16.2 Hypoglycemia, unspecified (principal); Z53.21 Procedure and treatment not carried out due to patient leaving prior to being seen by health care provider
CPT/HCPCS: 82948